=== PATIENT | female | born 1960 | race Caucasian/White ===

== ENCOUNTER 2024-12-28 13:45 | Emergency (ER) | payer MEDICARE, MEDICAID ==
[~2024-12-28] VITALS: Ht 172.7 cm; Wt 97.6 kg
[2024-12-28 13:57] VITALS: BP 129/83; PULSE 78; RESP 18; O2SAT 98
[2024-12-28 14:45] LABS: LEUKOCYTE ESTERASE ,URINE NEGATIVE (Neg); NITRITES, URINE NEGATIVE (Neg); OCCULT BLOOD,URINE NEGATIVE (Neg)
[2024-12-28 14:52] LABS: UA COLLECTION TYPE CLN CATCH MIDSTREAM
[2024-12-28 14:55] LABS: HYALINE CASTS 0-3 /LPF (NEGATIVE); SQUAMOUS EPITHELIAL CELL,UR FEW /LPF (FEW)
[2024-12-28 15:03] LABS: RENAL CELLS, URINE FEW /HPF
[2024-12-28 15:04] LABS: WBC CLUMPS,URINE FEW /HPF (NEGATIVE)
--- NOTE | 2024-12-28 15:07 | Physician Documentation ---
History of Present Illness ~ Chief Complaint: Urinary Symptoms Stated Complaint: BLADDER INFECTION Time Seen by MD: 14:43 HPI This is a 66-year-old female who presents with one-week of dysuria, hematuria, and urinary frequency along with suprapubic cramping pain worse with attempting to urinate. Patient reports no fever, chills, or flank pain. Patient reports history of frequent UTIs and she was younger and reports symptoms are similar. Patient reports no other acute symptoms or concerns and reports feels otherwise well. Medication Reconciliation Scheduled Nitrofurantoin Monohyd/M-Cryst (Macrobid 100 mg Capsule), 1 CAP PO Q12H Phenazopyridine HCl (Pyridium), 1 TAB PO Q8H Past Medical History Past Medical History: UTI Review of Systems ROS Dysuria and hematuria as stated above in the HPI, otherwise all systems are reviewed and negative. Physical Exam Vital Signs: Temperature: 97.8, Source: Temporal, Heart Rate: 78, Respiratory Rate: 18, BP: 129/83, Pulse Oximetry: 98, Weight: 97.600 Physical Exam VITALS: Reviewed and as above. GENERAL: Alert, nontoxic appearing, no apparent distress. RESPIRATORY: No increased work of breathing, no respiratory distress, speaking in full clear sentences BACK: No CVA tenderness GI: Soft, nontender, nondistended, no rebound, no guarding, bowel sounds present Progress Results/Orders Results/Orders Vital Signs 12/28/24 12/28/24 13:57 15:20 Temp 97.8 97.8 Pulse 78 Resp 18 B/P (MAP) 129/83 Pulse Ox 98 Laboratory Tests Test 12/28/24 13:58 Urine Specimen Description Cln catch midstream Urine Color Yellow Urine Clarity Slightly cloudy Urine pH 5.5 Urine Specific [place] 1.025 Urine Protein Negative Urine Glucose (UA) Negative Urine Ketones Negative Urine Occult Blood Negative Urine Nitrite Negative Urine Bilirubin Negative Urine Urobilinogen 0.2 Urine Leukocyte Esterase Negative Urine RBC 0-2 Urine WBC 10-20 H Urine WBC Clumps Few Urine Squamous Epithelial Cells Few Urine Transitional Epithelial Cells Few Urine Renal Cells Few Urine Bacteria Few Urine Hyaline Casts 0-3 Urine Culture Indicated Indicated Volume Urine Centrifuged 10 ml Urine Comment Microbiology Date/Time Source Procedure Growth Status 12/28/24 15:06 Urine Clean Catch Midstream Urine Culture - Preliminary Culture received. Resulted Medical Decision Making Findings This 64-year-old female presented with dysuria and urinary frequency with hematuria. It was reassuring patient had no CVA tenderness, abdominal pain, or systemic symptoms including fever or chills. Urinalysis did demonstrate evidence of urinary tract infection. Patient is otherwise well-appearing with remainder of physical exam benign and hemodynamically stable, patient is appropriate for outpatient follow up and we will be discharged on course of oral antibiotics. Patient provided follow up instructions and careful return to care precautions which he verbalized understanding of. Urinary Diff Dx:Considerations: Include: Appendicitis, Musculoskeletal pain, Ovarian torsion, Pyelonephritis, Urinary Obstruction, Urolithiasis, Urinary retention, Vaginitis Departure Time of Disposition: 15:11 Disposition: 01 HOME / SELF CARE / HOMELESS Impression: Primary Impression: Acute urinary tract infection Condition: Improved Discharge Instructions: Urinary Tract Infection, Adult Additional Instructions: Please take antibiotics as prescribed. Please follow up with your primary care provider in the next few days. Please return to the emergency department for any new or worsening concerning symptoms including but not limited to pain in your back or if you develop a fever. Referrals: NO PRIMARY CARE PROVIDER (PCP) Prescriptions Phenazopyridine HCl (Pyridium) 100 Mg Tablet 1 TAB PO Q8H for urinary discomfort for 2 Days, #6 TAB 0 Refills Prov: YOHAN MOE 12/28/24 Nitrofurantoin Monohyd/M-Cryst (Macrobid 100 mg Capsule) 100 Mg Capsule 1 CAP PO Q12H for 7 Days, #14 CAP 0 Refills Prov: YOHAN MOE 12/28/24 Education Educated: Patient Educated regarding: diagnosis, treatment, prognosis, need for follow up Signature Scribe Signature: No scribe Attestation: The note accurately reflects work and decisions made by me.SUSSY Walker 12/29/24 02:54 YOHAN MOE Dec 28, 2024 15:06
[2024-12-28] MEDS ORDERED: NITR100C6 PO (15:14)
[2024-12-28] MEDS ORDERED: PHEN-824 PO (15:14)
[2024-12-28 15:20] VITALS: TEMP 97.8
== END 2024-12-28 15:21 | disposition home or self-care (01) ==
LOC: ER 13:47
DX: N39.0 Urinary tract infection, site not specified (principal)
CPT/HCPCS: 81001; 87088; 99283

== ENCOUNTER 2025-02-08 13:18 | Emergency (ER) | payer MEDICARE, MEDICAID ==
[~2025-02-08] VITALS: Ht 167.6 cm; Wt 79.5 kg
[~2025-02-08 13:18] MED LIST: NITR100C6 PO; PHEN-824 PO
[2025-02-08 14:03] LABS: LEUKOCYTE ESTERASE ,URINE NEGATIVE (Neg); NITRITES, URINE NEGATIVE (Neg); OCCULT BLOOD,URINE NEGATIVE (Neg)
[2025-02-08 14:08] LABS: UA COLLECTION TYPE CLN CATCH MIDSTREAM
[2025-02-08 14:09] LABS: MUCUS STRANDS FEW /LPF (Neg); SQUAMOUS EPITHELIAL CELL,UR FEW /LPF (FEW)
[2025-02-08 14:10] LABS: HYALINE CASTS 0-3 /LPF (NEGATIVE)
[2025-02-08] MEDS ORDERED: NITR100C6 PO (15:18)
[2025-02-08] MEDS ORDERED: PHEN-824 PO (15:18)
--- NOTE | 2025-02-08 15:19 | Physician Documentation ---
History of Present Illness ~ Chief Complaint: Urinary Symptoms Stated Complaint: BLADDER INFECTION Time Seen by MD: 14:33 HPI Patient is seen today with complaints of bladder spasm and states that she has had two previous urinary tract infections in the last couple of months and she feels like she may have developed a 3rd one. Patient does admit to mild dysuria. She denies any flank pain or fevers is states her symptoms just started a couple of days ago. She has no other concern or complaint at this time. Medication Reconciliation Allergies: Coded Allergies: Penicillins (Verified Allergy, Unknown, 02/08/25) celecoxib (Verified Allergy, Unknown, 02/08/25) hydromorphone (Verified Allergy, Unknown, 02/08/25) Scheduled Nitrofurantoin Monohyd/M-Cryst (Macrobid 100 mg Capsule), 1 CAP PO Q12H Phenazopyridine HCl (Pyridium), 1 TAB PO Q8H Past Medical History Past Medical History: UTI Review of Systems Constitutional: Denies: chills, fever, weakness Eyes: Denies: pain, blurred vision ENT: Denies: ear pain, nose pain, throat pain, mouth pain Respiratory: Denies: cough, shortness of breath Cardiovascular: Denies: chest pain, palpitations Gastrointestinal: Denies: abdominal pain, nausea, vomiting Genitourinary: Denies: burning, dysuria Female Genitalia: Denies: vaginal discharge, pelvic pain Neurological: Denies: headache, dizziness Musculoskeletal: Denies: pain, swelling Integumentary: Denies: rash, lesions Allergic/Immunologic: Denies: hives, itching Hematologic/Lymphatic: Denies: no symptoms reported Psychiatric: Denies: depression, anxiety Physical Exam Vital Signs: Temperature: 98.4, Source: Temporal, Heart Rate: 90, Respiratory Rate: 16, BP: 148/99, Pulse Oximetry: 99, Weight: 79.550 Oxygen Flow Rate: 0 Physical Exam General: Awake and Alert, no acute distress. HEENT: Conjunctiva pink, Sclera clear, Mucus Membranes moist. Neck: Supple without masses and tenderness. Resp: Unlabored. Lungs clear to auscultation bilaterally. Heart: Regular Rate and rhythm, normal S1 and S2 without murmur, rub or gallop. Abdomen: Soft and non tender no organomegaly. On exam patient has no CVA tenderness. Extremities: No cyanosis,clubbing or edema. Skin: Warm and Dry. Progress Results/Orders Results/Orders Orders - TORI SWAN PAC Cult Urine + [place] [address] (02/08/25 14:11) Completed Orders - TORI SWAN PAC Ua W/Microscopic, Cult If Ind (02/08/25 13:29) Vital Signs 02/08/25 13:27 Temp 98.4 Pulse 90 Resp 16 B/P (MAP) 148/99 Pulse Ox 99 O2 Flow Rate 0 Laboratory Tests Test 02/08/25 13:29 Urine Specimen Description Cln catch midstream Urine Color Yellow Urine Clarity Slightly cloudy Urine pH 5.5 Urine Specific [place] >=1.030 Urine Protein Negative Urine Glucose (UA) Negative Urine Ketones Negative Urine Occult Blood Negative Urine Nitrite Negative Urine Bilirubin Negative Urine Urobilinogen 0.2 Urine Leukocyte Esterase Negative Urine RBC 3-10 Urine WBC 10-20 H Urine Squamous Epithelial Cells Few Urine Bacteria Few Urine Hyaline Casts 0-3 Urine Mucus Few Urine Culture Indicated Indicated Volume Urine Centrifuged 4 ml Urine Comment Low volume Microbiology Date/Time Source Procedure Growth Status 02/08/25 14:11 Urine Clean Catch Midstream Urine Culture - Preliminary Culture received. Resulted Medical Decision Making Findings Patient is seen today with complaints of bladder spasm and states that she has had two previous urinary tract infections in the last couple of months and she feels like she may have developed a 3rd one. Patient does admit to mild dysuria. She denies any flank pain or fevers is states her symptoms just started a couple of days ago. She has no other concern or complaint at this time. Patient did have UA in the office today that was indicated for culture showing some white blood cells and bacteria in the urine, leukocyte and nitrite negative and negative for blood. Prescription of Macrobid sent to patient's pharmacy to be taken as indicated. I recommended patient follow up with Gynecology for further eval and treatment as well as follow up with primary care to review culture and sensitivity report. Voiced understanding. Departure Disposition: HOME / SELF CARE / HOMELESS Impression: Primary Impression: Acute urinary tract infection Condition: Stable Discharge Instructions: Dysuria Additional Instructions: Patient did have UA in the office today that was indicated for culture showing some white blood cells and bacteria in the urine, leukocyte and nitrite negative and negative for blood. Prescription of Macrobid sent to patient's pharmacy to be taken as indicated. I recommended patient follow up with Gynecology for further eval and treatment as well as follow up with primary care to review culture and sensitivity report. Voiced understanding. Referrals: NO PRIMARY CARE PROVIDER (PCP) Prescriptions Phenazopyridine HCl (Pyridium) 100 Mg Tablet 1 TAB PO Q8H for urinary discomfort for 5 Days, #15 TAB 0 Refills Prov: TORI SWAN 02/08/25 Nitrofurantoin Monohyd/M-Cryst (Macrobid 100 mg Capsule) 100 Mg Capsule 1 CAP PO Q12H for 7 Days, #14 CAP 0 Refills Prov: TORI SWAN 02/08/25 Signature Scribe Signature: No scribe Attestation: No scribe TORI SWAN PAC Feb 08, 2025 15:19
[2025-02-08 15:31] VITALS: BP 126/76; PULSE 68; RESP 16; TEMP 97.7; O2SAT 97
== END 2025-02-08 15:31 | disposition home or self-care (01) ==
LOC: ER 13:19
DX: N39.0 Urinary tract infection, site not specified (principal); Z88.0 Allergy status to penicillin; Z88.5 Allergy status to narcotic agent
CPT/HCPCS: 81001; 87088; 99283

== ENCOUNTER 2025-06-04 12:47 | Outpatient (CLI) | payer MEDICARE, MEDICAID ==
--- NOTE | 2025-06-04 14:57 | RADIOLOGY REPORT ---
CLINICAL HISTORY: Right ankle effusion. TECHNIQUE: Multisequence multiplanar MRI images of the right ankle were obtained without contrast. COMPARISON: None FINDINGS: BONES/JOINTS: No acute fracture or focal marrow contusion. No osteochondral defect or significant chondromalacia. Small cyst in the body of the calcaneus, possible intraosseous ganglion cyst. 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 No significant joint effusion. TENDONS: Tibialis posterior, flexor digitorum longus, and flexor hallucis longus tendons are intact. Mild tenosynovitis of the peroneus longus and brevis tendons near the level of the lateral malleolus and along their proximal inframalleolar courses. Tibialis anterior, extensor hallucis longus, and extensor digitorum longus tendons are intact. Moderate to marked Achilles tendinosis with mild peritendinitis. Longitudinal split tear of the achilles tendon measures up to 0.3 cm in AP dimension, 0.3 cm in transverse dimension, and extends up to 2.8 cm in proximal to distal dimension, with the distal aspect of the tear approximately 1.9 cm proximal to the insertion. There is mild edema in Kager's fat pad. LIGAMENTS: Mild edema in the deep fibers of the deltoid ligament complex, may be sequelae of sprain or nonspecific inflammation. Spring ligament complex is intact. Mildly to moderately attenuated anterior talofibular ligament, possible chronic sprain. Posterior talofibular ligament is intact. Mild edema along the course of the anterior inferior tibiofibular ligament, may be sequelae of sprain. Mild edema along the course of the calcaneofibular ligament, possible sprain. PLANTAR FASCIA: Unremarkable. No significant thickening or edema. SINUS TARSI: Unremarkable. No significant edema. MUSCLES: Unremarkable. No significant atrophy. OTHER: No other significant findings. IMPRESSION: 1. Achilles tendinosis with mild peritendinitis and longitudinal split tear as detailed above. 2. Mild peroneal tenosynovitis. 3. Sequela of medial and lateral ligamentous sprains as described above. 4. Additional findings as detailed above.
== END 2025-06-04 23:59 | disposition home or self-care (01) ==
LOC: MRI02 12:47
PROVIDERS: ATTEND Orthopaedic Surgery Foot and Ankle Surgery
DX: S86.011A Strain of right Achilles tendon, initial encounter (principal); M65.871 Other synovitis and tenosynovitis, right ankle and foot; Y99.9 Unspecified external cause status; M25.471 Effusion, right ankle; X58.XXXA Exposure to other specified factors, initial encounter; M76.61 Achilles tendinitis, right leg; Y93.89 Activity, other specified; Y92.89 Other specified places as the place of occurrence of the external cause
CPT/HCPCS: 73721